=== PATIENT | female | born 1970 | race Caucasian/White ===

== ENCOUNTER 2020-12-11 14:18 | Emergency (ER) | payer OTHER ==
[~2020-12-11 14:18] MED LIST: ADVIL200 M1 PO; COLESTID 1GM TAB1 GM PO; CYMBALTA 30MG C30 MG PO; FLEXERIL5 MG PO; NORCO 5-325 TA1 EACH PO; ZANAFLEX4 M1 PO; ZOFRAN4 MG PO
[2020-12-11 15:28] LABS: ALBUMIN 3.3 g/dL (3.4-5.0); AMYLASE 56 U/L (25-115); BILIRUBIN - TOTAL 0.2 mg/dL (0.2-1.0); BUN/CREAT RATIO (CALC) 16.1 RATIO; CREATININE 0.62 mg/dL (0.51-0.95); GLOBULIN (CALCULATION) 4.1 g/dL; LIPASE 142 U/L (73-393); POTASSIUM 4.3 mmol/L (3.5-5.1); TOTAL PROTEIN 7.4 g/dL (6.4-8.2)
[2020-12-11 15:36] LABS: BASOPHIL 0.4 % (0-2); EOSINOPHIL 2.3 % (0-5); HCT 38.8 % (37.0-47.0); HGB 12.7 g/dl (12.5-16.0); LYMPHOCYTE 19.3 % (15-48); MCH 28.9 pg (25.0-31.0); MCHC 32.7 g/dL (32.0-36.0); MCV 88.4 fL (78.0-100.0); MONOCYTE 5.9 % (0-12); MPV 10.9 fL (6.0-9.5); NEUTROPHIL 71.7 % (41-80); NRBC 0; PLT 296 K/uL (150-400); RBC 4.39 M/uL (4.20-5.40); RDW 13.1 % (11.5-14.0); WBC 7.5 K/uL (4.0-10.5)
[2020-12-11 15:37] LABS: LACTIC ACID 2.4 mmol/L (0.4-1.9)
[2020-12-11] MEDS ORDERED: LEVAQUIN500 MG PO (17:22)
[2020-12-11] MEDS ORDERED: DIFLUCAN150 M1 PO (17:26)
[2020-12-11 17:35] LABS: BILIRUBIN NEGATIVE (NEGATIVE); BLOOD NEGATIVE Ery/uL (NEGATIVE); CLARITY CLEAR (CLEAR); COLOR YELLOW (YELLOW); GLUCOSE (U) NORMAL (NORMAL); LEUKOCYTES 1+ Leu/uL (NEGATIVE); NITRITE NEGATIVE (NEGATIVE); PROTEIN NEGATIVE (NEGATIVE); SPECIFIC GRAVITY 1.015 (1.001-1.030); UROBILINOGEN 0.2 mg/dL (0.2-1.0)
[2020-12-11 17:44] LABS: URINARY WBC RARE
== END 2020-12-11 18:18 | disposition home or self-care (01) ==
LOC: FER 14:18
PROVIDERS: Nurse Practitioner Family
DX: S02.40CA Maxillary fracture, right side, initial encounter for closed fracture (principal); J32.9 Chronic sinusitis, unspecified; R53.1 Weakness; Z98.818 Other dental procedure status; Z85.038 Personal history of other malignant neoplasm of large intestine; Z88.0 Allergy status to penicillin; Z88.6 Allergy status to analgesic agent; Z91.040 Latex allergy status; X58.XXXA Exposure to other specified factors, initial encounter
CPT/HCPCS: 36415; 70486; 80053; 81001; 82150; 83605; 83690; 85025; 87040; 93005; J0780; J1956; J2405; J7030

== ENCOUNTER 2021-10-11 13:12 | Emergency (ER) | payer OTHER ==
[~2021-10-11 13:12] MED LIST changes: +DIFLUCAN150 M1 PO; +LEVAQUIN500 MG PO
[2021-10-11 15:37] LABS: CORONAVIRUS 2019 SARS-COV-2 NEGATIVE (NEGATIVE); INFLUENZA A NAA NEGATIVE (NEGATIVE)
[2021-10-11] MEDS ORDERED: BACLOFEN 10MG T10 MG PO (16:33)
[2021-10-11] MEDS ORDERED: VIBRAMYCIN100 MG PO (16:33)
== END 2021-10-11 17:27 | disposition home or self-care (01) ==
LOC: FER 13:12
PROVIDERS: Nurse Practitioner Family
DX: M54.50 Low back pain, unspecified (principal); J32.9 Chronic sinusitis, unspecified; M25.531 Pain in right wrist; M25.552 Pain in left hip; M25.562 Pain in left knee; M25.561 Pain in right knee; I10 Essential (primary) hypertension; Z20.822 Contact with and (suspected) exposure to COVID-19; Z88.0 Allergy status to penicillin; W01.0XXA Fall on same level from slipping, tripping and stumbling without subsequent striking against object, initial encounter; Y93.01 Activity, walking, marching and hiking; Y92.512 Supermarket, store or market as the place of occurrence of the external cause
CPT/HCPCS: 70450; 72125; 72131; 73130; 73502; 73564; 96372; J1100; J1885; J2405; J3030; J7030; U0002

== ENCOUNTER 2022-04-30 23:48 | Emergency (ER) | payer OTHER ==
[~2022-04-30 23:48] MED LIST changes: +BACLOFEN 10MG T10 MG PO; +VIBRAMYCIN100 MG PO
[2022-05-01] MEDS ORDERED: EPIPEN 2-P0.3 MG/0.3 IM (03:25)
[2022-05-01] MEDS ORDERED: MEDROL 4MG DOSEP4 MG PO (03:25)
== END 2022-05-01 03:39 | disposition home or self-care (01) ==
LOC: FER 23:48
DX: T88.6XXA Anaphylactic reaction due to adverse effect of correct drug or medicament properly administered, initial encounter (principal); T50.905A Adverse effect of unspecified drugs, medicaments and biological substances, initial encounter; Z88.0 Allergy status to penicillin; Z91.040 Latex allergy status
CPT/HCPCS: 96372; J0171; J1200; J2930